=== PATIENT | female | born 1935 | race Caucasian/White ===

== ENCOUNTER → 2023-10-29 12:54 | Outpatient (REF) | payer MEDICARE, SELFPAY | LOC: WDC 12:54 | PROVIDERS: ATTENDING PHYSICIAN Internal Medicine | DX: Z12.31 Encounter for screening mammogram for malignant neoplasm of breast (principal) | CPT/HCPCS: 77063; 77067 ==

== ENCOUNTER → 2024-01-03 10:32 | Outpatient (REF) | payer MEDICARE, SELFPAY ==
[2024-01-03 11:32] LABS: Albumin 4.5 g/dl (3.5-5.0); Blood Urea Nitrogen 20 mg/dl (7-17); Calcium 9.9 mg/dl (8.4-10.2); Carbon Dioxide 28 mmol/L (22-30); Chloride 104 mmol/L (98-107); Glucose 98 mg/dl (70-99); Phosphorus 3.4 mg/dl (2.5-4.5); Potassium 4.9 mmol/L (3.5-5.1); Sodium 143 mmol/L (135-145); eGFR > 60.00
== END ==
LOC: REG 10:32
PROVIDERS: ATTENDING PHYSICIAN Internal Medicine
DX: I10 Essential (primary) hypertension (principal)
CPT/HCPCS: 36415; 80069

== ENCOUNTER → 2024-01-24 16:38 | Outpatient (REF) | payer MEDICARE, SELFPAY | LOC: RAD 16:38 | PROVIDERS: ATTENDING PHYSICIAN Internal Medicine | DX: R05.9 Cough, unspecified (principal); R50.9 Fever, unspecified | CPT/HCPCS: 71046 ==

== ENCOUNTER → 2024-02-14 11:26 | Outpatient (REF) | payer MEDICARE, SELFPAY ==
[2024-02-14 12:18] LABS: % Basophils 1.1 % (0-2); % Eosinophils 4.3 % (0-6); % Immature Granulocytes 0.2 % (0-0.5); % Monocytes 6.3 % (1.7-9.3); % Neutrophils 63.1 % (42.2-75.2); Absolute Basophils 0.1 10^3/uL (0-0.2); Absolute Eosinophils 0.2 10^3/uL (0-0.7); Absolute Lymphocytes 1.4 10^3/uL (1.2-3.4); Absolute Monocytes 0.4 10^3/uL (0.1-0.6); Absolute Neutrophils 3.5 10^3/uL (1.4-6.5); Hematocrit 35.3 % (37.0-47.0); Mean Corpuscular Hgb 31.4 pg (27.0-31.0); Mean Corpuscular Volume 92.4 fL (81.0-99.0); Mean Platelet Volume 9.6 fL (7.4-10.4); Nucleated Red Blood Cells % 0 %; Platelet Count 243 10^3/uL (130-400); Red Blood Cell Count 3.82 10^6/uL (4.20-5.40); Red Cell Dist. Width 12.8 % (11.5-14.5); White Blood Cell Count 5.6 10^3/uL (4.8-10.8)
[2024-02-14 12:43] LABS: NT-proBNP 298 pg/ml
[2024-02-14 12:51] LABS: Erythrocyte Sed Rate 15 mm/hour (0-20)
[2024-02-14 13:17] LABS: ALT (SGPT) 19 U/L (0-35); AST (SGOT) 27 U/L (14-36); Albumin 4.6 g/dl (3.5-5.0); Alkaline Phosphatase 59 U/L (38-126); Blood Urea Nitrogen 21 mg/dl (7-17); Calcium 10.6 mg/dl (8.4-10.2); Carbon Dioxide 30 mmol/L (22-30); Chloride 104 mmol/L (98-107); Glucose 95 mg/dl (70-99); Potassium 4.8 mmol/L (3.5-5.1); Sodium 143 mmol/L (135-145); Total Protein 6.9 g/dl (6.3-8.2); eGFR 54.19
[2024-02-14 13:40] LABS: Free T4 1.11 ng/dl (0.78-2.19)
[2024-02-14 13:54] LABS: TSH 0.28 uIU/ml (0.47-4.68)
== END ==
LOC: REG 11:26
PROVIDERS: ATTENDING PHYSICIAN Internal Medicine; OTHER PHYSICIAN Otolaryngology
DX: R05.3 Chronic cough (principal); R06.02 Shortness of breath; R53.83 Other fatigue
CPT/HCPCS: 36415; 80053; 83880; 84439; 84443; 85025; 85652

== ENCOUNTER → 2024-05-05 12:27 | Outpatient (REF) | payer MEDICARE, SELFPAY ==
[2024-05-05 13:33] LABS: % Basophils 0.6 % (0-2); % Eosinophils 2.5 % (0-6); % Immature Granulocytes 0.2 % (0-0.5); % Lymphocytes 21.5 % (20.5-51.1); % Monocytes 5.4 % (1.7-9.3); % Neutrophils 69.8 % (42.2-75.2); Absolute Eosinophils 0.2 10^3/uL (0-0.7); Absolute Lymphocytes 1.4 10^3/uL (1.2-3.4); Absolute Monocytes 0.4 10^3/uL (0.1-0.6); Absolute Neutrophils 4.5 10^3/uL (1.4-6.5); Hematocrit 33.4 % (37.0-47.0); Hemoglobin 11.1 g/dL (12.0-16.0); Mean Corp Hgb Conc. 33.2 g/dL (33.0-37.0); Mean Corpuscular Hgb 30.3 pg (27.0-31.0); Mean Corpuscular Volume 91.3 fL (81.0-99.0); Mean Platelet Volume 9.5 fL (7.4-10.4); Nucleated Red Blood Cells % 0 %; Platelet Count 242 10^3/uL (130-400); Red Blood Cell Count 3.66 10^6/uL (4.20-5.40); Red Cell Dist. Width 12.3 % (11.5-14.5); White Blood Cell Count 6.5 10^3/uL (4.8-10.8)
[2024-05-05 14:20] LABS: ALT (SGPT) 24 U/L (0-35); AST (SGOT) 24 U/L (14-36); Albumin 4.6 g/dl (3.5-5.0); Alkaline Phosphatase 92 U/L (38-126); Blood Urea Nitrogen 28 mg/dl (7-17); Calcium 9.7 mg/dl (8.4-10.2); Carbon Dioxide 28 mmol/L (22-30); Chloride 101 mmol/L (98-107); Glucose 99 mg/dl (70-99); HDL Cholesterol 70 mg/dl; LDL Cholesterol, Calculated 62 mg/dl; Potassium 4.5 mmol/L (3.5-5.1); Sodium 137 mmol/L (135-145); Total Bilirubin 1.3 mg/dl (0.2-1.3); Total Cholesterol 167 mg/dl (50-199); Total Protein 6.7 g/dl (6.3-8.2); Triglyceride 178 mg/dl (10-149); Very Low Density Lipoprotein 35 mg/dl (0-30); eGFR > 60.00
[2024-05-05 14:31] LABS: Urine Albumin Negative (Neg - Trace); Urine Bilirubin Negative (Negative); Urine Character Clear (Clear); Urine Color Yellow; Urine Glucose Negative (Negative); Urine Ketone Negative (Negative); Urine Leukocyte 2+ (Negative); Urine Nitrite Negative (Negative); Urine Occult Blood Negative (Negative); Urine Specific Gravity 1.015 (<1.030); Urine Urobilinogen Negative (Neg - 1+)
[2024-05-05 14:43] LABS: Urine Squamous Cell 0-2 /LPF (Few)
[2024-05-05 14:44] LABS: Urine Bacteria Few (Negative); Urine Red Blood Cell 0-2 /HPF (0-2); Urine White Cell 40-50 /HPF (0-5)
== END ==
LOC: REG 12:27
PROVIDERS: ATTENDING PHYSICIAN Internal Medicine
DX: I10 Essential (primary) hypertension (principal); Z86.73 Personal history of transient ischemic attack (TIA), and cerebral infarction without residual deficits
CPT/HCPCS: 36415; 80053; 80061; 81003; 81015; 85025

== ENCOUNTER → 2024-08-04 10:09 | Outpatient (REF) | payer MEDICARE, SELFPAY ==
[2024-08-04 11:04] LABS: % Basophils 0.7 % (0-2); % Eosinophils 2.6 % (0-6); % Immature Granulocytes 0.3 % (0-0.5); % Lymphocytes 19.9 % (20.5-51.1); % Monocytes 5.3 % (1.7-9.3); % Neutrophils 71.2 % (42.2-75.2); Absolute Basophils 0.1 10^3/uL (0-0.2); Absolute Eosinophils 0.2 10^3/uL (0-0.7); Absolute Lymphocytes 1.5 10^3/uL (1.2-3.4); Absolute Monocytes 0.4 10^3/uL (0.1-0.6); Absolute Neutrophils 5.2 10^3/uL (1.4-6.5); Hemoglobin 11.2 g/dL (12.0-16.0); Mean Corp Hgb Conc. 33.9 g/dL (33.0-37.0); Mean Corpuscular Hgb 31.2 pg (27.0-31.0); Mean Corpuscular Volume 91.9 fL (81.0-99.0); Mean Platelet Volume 9.5 fL (7.4-10.4); Nucleated Red Blood Cells % 0 %; Platelet Count 229 10^3/uL (130-400); Red Blood Cell Count 3.59 10^6/uL (4.20-5.40); White Blood Cell Count 7.3 10^3/uL (4.8-10.8)
== END ==
LOC: REG 10:09
PROVIDERS: ATTENDING PHYSICIAN Internal Medicine
DX: D64.9 Anemia, unspecified (principal)
CPT/HCPCS: 36415; 85025

== ENCOUNTER → 2024-10-29 12:48 | Outpatient (REF) | payer MEDICARE, SELFPAY | LOC: WDC 12:48 | PROVIDERS: ATTENDING PHYSICIAN Internal Medicine | DX: Z12.31 Encounter for screening mammogram for malignant neoplasm of breast (principal) | CPT/HCPCS: 77063; 77067 ==

== ENCOUNTER → 2024-11-03 10:27 | Outpatient (REF) | payer MEDICARE, SELFPAY ==
[2024-11-03 11:02] LABS: Hematocrit 35.4 % (37.0-47.0); Hemoglobin 11.9 g/dL (12.0-16.0); Mean Corp Hgb Conc. 33.6 g/dL (33.0-37.0); Mean Corpuscular Volume 92.2 fL (81.0-99.0); Nucleated Red Blood Cells % 0 %; Platelet Count 227 10^3/uL (130-400); Red Cell Dist. Width 12.7 % (11.5-14.5)
[2024-11-03 11:46] LABS: Albumin 4.6 g/dl (3.5-5.0); Blood Urea Nitrogen 23 mg/dl (7-17); Calcium 9.8 mg/dl (8.4-10.2); Carbon Dioxide 28 mmol/L (22-30); Chloride 104 mmol/L (98-107); Glucose 97 mg/dl (70-99); Potassium 4.3 mmol/L (3.5-5.1); Sodium 140 mmol/L (135-145); eGFR > 60.00
== END ==
LOC: REG 10:27
PROVIDERS: ATTENDING PHYSICIAN Internal Medicine
DX: I10 Essential (primary) hypertension (principal); D64.9 Anemia, unspecified
CPT/HCPCS: 36415; 80069; 85025